=== PATIENT | female | born 2000 | race Caucasian/White ===

== ENCOUNTER 2019-08-21 05:13 | Inpatient (IN) ==
[2019-08-21 05:53] LABS: URINE SOURCE VOIDED
[2019-08-21 05:55] LABS: BILIRUBIN URINE NEGATIVE (NEGATIVE); BLOOD URINE NEGATIVE (NEGATIVE); COLOR YELLOW; GLUCOSE URINE NEGATIVE (NEGATIVE); KETONE URINE NEGATIVE (NEGATIVE); LEUKOCYTES URINE SMALL (NEGATIVE); NITRITE URINE NEGATIVE (NEGATIVE); PROTEIN URINE NEGATIVE (NEGATIVE); SP GRAVITY URINE 1.012; TURBIDITY URINE CLEAR (CLEAR); UROBILINOGEN URINE NORMAL (NORMAL)
[2019-08-21 07:19] LABS: UR AMPHETAMINES QUAL NONE DETECTED (NONE DETECT); UR BARBITUATES QUAL NONE DETECTED (NONE DETECT); UR BENZODIAZEPIN QUAL NONE DETECTED (NONE DETECT); UR CANNABINOIDS QUAL NONE DETECTED (NONE DETECT); UR COCAINE QUAL NONE DETECTED (NONE DETECT); UR METHADONE QUAL NONE DETECTED (NONE DETECT); UR OPIATES QUAL NONE DETECTED (NONE DETECT); UR OXYCODONE QUAL NONE DETECTED (NONE DETECT); UR PCP QUAL NONE DETECTED (NONE DETECT)
[2019-08-21] MEDS ORDERED: LR 1,000 ML ONE (07:30)
[2019-08-21] MEDS ORDERED: ZOFRAN IV PRN (08:07)
[2019-08-21] MEDS ORDERED: PEPCID PO PRN ×2 (08:07)
[2019-08-21] MEDS ORDERED: REGLAN PO PRN (08:07)
[2019-08-21] MEDS ORDERED: PEPCID IV PRN (08:07)
[2019-08-21] MEDS ORDERED: TYLENOL PO PRN (08:07)
[2019-08-21] MEDS ORDERED: LR 500 ML IV ONE (08:07)
[2019-08-21] MEDS ORDERED: KEFZOL 2 GM/D5W 2 GM/50 ML IVPB IV PRN (08:07)
[2019-08-21] MEDS ORDERED: AMPICILLIN 2 GM in NS 100 ML IV ONE (08:07)
[2019-08-21] MEDS ORDERED: PITOCIN 30 UNITS/NS 30 UNIT/500 ML IV.SOLN IV SCH ×2 (08:15→16:00)
[2019-08-21] MEDS ORDERED: LR 1,000 ML IV SCH (08:15)
[2019-08-21] MEDS ORDERED: SODIUM CHLORIDE 0.9% INJ SCH (08:15)
[2019-08-21 08:26] LABS: BASO# 0.02 X1000 (0.0-0.2); BASO% 0.1 % (0.0-0.8); EOS# 0.08 X1000 (0.0-0.7); EOS% 0.5 % (0.0-10.0); HEMATOCRIT 36.8 % (37.0-47.0); HEMOGLOBIN 12.5 g/dL (12.0-16.0); IMM GRAN# 0.11 X1000 (0.0-0.04); IMM GRAN% 0.7 % (0.0-0.5); LYMPH# 1.75 X1000 (1.2-3.4); LYMPH% 11.8 % (20.5-51.1); MCH 29.8 PG (27-31); MCV 87.8 FL (81-99); MONO# 1.08 X1000 (0.11-0.59); MONO% 7.3 % (1.7-9.3); MPV 11.2 FL (7.4-10.4); NEUT# 11.82 X1000 (1.4-6.5); NEUT% 79.6 % (42.2-75.2); PLT 192 X1000 (130-400); RBC 4.19 XMIL (4.2-5.4); RDW 12.7 % (11.5-14.5); WBC 14.86 X1000 (4.8-10.8)
[2019-08-21] MEDS: STADOL IV PRN ×2 (08:27→12:25)
[2019-08-21] MEDS: LR 1,000 ML IV SCH ×2 (08:37→13:11)
[2019-08-21] MEDS ORDERED: NAROPIN 0.2% INJ ONE (08:45)
[2019-08-21] MEDS ORDERED: FENTANYL-BUPIV-NS 500 MCG-0.125% 250 ML EPIDURAL SCH (09:00)
[2019-08-21] MEDS ORDERED: FENTANYL IV ONE (09:51)
[2019-08-21] MEDS ORDERED: NEO-SYNEPHRINE IV ONE (09:53)
[2019-08-21] MEDS ORDERED: SODIUM CHLORIDE 0.9% INJ PRN (09:54)
[2019-08-21] MEDS ORDERED: XYLOCAINE-MPF 2% ONE (10:45)
[2019-08-21] MEDS: AMPICILLIN 1 GM in NS 50 ML IV SCH ×2 (12:05→17:49)
--- NOTE | 2019-08-21 12:11 | HISTORY AND PHYSICAL ---
HISTORY OF PRESENT ILLNESS: Ms. Jones is a 19-year-old, G 1, P 0, at 36 weeks and 2 days who presents to labor and delivery in early active labor. The patient reports regular contractions, increased pelvic pain and pressure. Reports good movement. Denies leakage of fluid or vaginal bleeding. The patient has had routine care with current . The patient's 1 hour oral glucose tolerance test was elevated; however, 3 hour diagnostic test was found to be normal. labs showed blood type O positive, antibody screen negative, hepatitis B nonreactive, hepatitis C nonreactive, HIV nonreactive, chlamydia negative, gonorrhea negative, rubella immune, RPR nonreactive. ALLERGIES: No known drug allergies. CURRENT MEDICATIONS: vitamins. PAST MEDICAL HISTORY: None. PAST SURGICAL HISTORY: None. OBSTETRICAL HISTORY: G 1, P 0. DUST SAMPLER HISTORY: Menarche at age 12. Denies STD exposure. FAMILY HISTORY: Noncontributory. SOCIAL HISTORY: Denies tobacco, alcohol, or drug use. PHYSICAL EXAMINATION: VITAL SIGNS: Temperature 97.8 degrees Fahrenheit, pulse rate 84, respiratory rate 18, blood pressure 117/74, O2 saturation is 99% on room air. Weight 193 pounds. Height 5 feet 2 inches tall. Body mass index 35 kg/m2. GENERAL: No acute distress. Alert, awake, oriented x3. CARDIOVASCULAR: Regular rate and rhythm. Positive S1, S2. RESPIRATORY: Clear to auscultation bilaterally. Negative rhonchi, rales, or wheezing. ABDOMEN: Gravid, soft, nontender to palpation. EXTREMITIES: Lower extremities +1 edema. Negative calf tenderness. PELVIC: Sterile vaginal exam, 3 cm dilated, 90% effaced, -2 station. Electronic monitoring, category 1 tracing. Tocometry, contractions occurring every 3 to 4 minutes. LABORATORY: WBCs 14.86, hemoglobin 12.5, hematocrit 36.8, platelets 192,000. Urine drug screen negative. GBS pending. ASSESSMENT: Ms. Jones is a 19-year-old, 1, para 0, at 36 weeks and 2 days, who presents in early active labor. PLAN: 1. Admit to labor and delivery for delivery. 2. Obtain routine labor labs. 3. GBS status unknown. We will treat with ampicillin IV. 4. Augmentation with Pitocin and artificial rupture of membranes as needed for active management. 5. Patient counseled on risks, benefits, and alternatives to vaginal delivery. Risks not limited to infection, bleeding, vaginal laceration, need for vacuum delivery, or emergency delivery. The patient understands risks and agrees to procedure. 6. Continuous electronic monitoring.
[2019-08-21] MEDS ORDERED: MINERAL OIL TOP ONE (13:21)
[2019-08-21] MEDS ORDERED: XYLOCAINE-MPF 1% INJ ONE (13:22)
[2019-08-21] MEDS ORDERED: PITOCIN 20 UNITS/NS 20 UNITS/1,000 ML IV.SOLN ONE (14:27)
[2019-08-21] MEDS ORDERED: HYDROXYZINE IM PRN (15:49)
[2019-08-21] MEDS ORDERED: PERI MEDS (DERMOPLAST/NUPERCAINAL/TUCKS) MISC PRN (15:49)
[2019-08-21] MEDS ORDERED: NORCO-5 PO PRN (15:49)
[2019-08-21] MEDS ORDERED: ATARAX PO PRN (15:49)
[2019-08-21] MEDS ORDERED: CYTOTEC PO PRN (15:49)
[2019-08-21] MEDS ORDERED: BOOSTRIX VACCINE IM ONE (15:49)
[2019-08-21] MEDS ORDERED: BENADRYL IV PRN (15:49)
[2019-08-21] MEDS ORDERED: PITOCIN IM PRN (15:49)
[2019-08-21] MEDS ORDERED: BENADRYL PO PRN (15:49)
[2019-08-21] MEDS ORDERED: M-M-R II VACCINE SUBQ ONE (15:49)
[2019-08-21] MEDS ORDERED: AMBIEN PO PRN (15:49)
[2019-08-21] MEDS ORDERED: MINERAL OIL TOP PRN (15:49)
[2019-08-21] MEDS ORDERED: XYLOCAINE-MPF 1% INJ PRN (15:49)
[2019-08-21] MEDS ORDERED: PITOCIN 20 UNITS/NS 20 UNITS/1,000 ML IV.SOLN IV SCH (16:00)
[2019-08-21] MEDS: MOTRIN PO PRN (17:48)
[2019-08-21] MEDS: PERICOLACE PO SCH (20:49)
--- NOTE | 2019-08-22 01:49 | OPERATIVE NOTE ---
PROCEDURE DATE: 08/21/2019 SURGEON: Natalia Muhammad DO. LIDAR ANALYST: None. PROCEDURE PERFORMED: Spontaneous vaginal delivery. DESCRIPTION OF PROCEDURE: The patient delivered a viable female at 36 weeks and 2 days, weighing 6 pounds 1 ounce with 's of 8 and 9 at one and five minutes respectively. The vertex delivered spontaneously over intact perineum. No nuchal cord was identified. The anterior shoulder was delivered atraumatically by maternal expulsive efforts with the assistance of downward traction. The posterior shoulder delivered with maternal expulsive efforts and upward traction. The remainder of the fetus delivered spontaneously. Upon delivery, the was placed on the patient's abdomen and assessed by waiting asset management lead staff. The cord was then clamped and cut, and cord blood was obtained for blood gas analysis. To enhance uterine contractions, IV oxytocin was administered. The cervix, vagina and perineum were inspected for lacerations. Bilateral sidewall lacerations were noted near the labia and was repaired using 3-0 Vicryl on an SH needle. Prior to repair, 1% lidocaine was injected at the site for pain management. Bilateral first-degree lacerations were repaired in a running nonlocked fashion and good hemostasis was confirmed. ESTIMATED BLOOD LOSS: 250 mL. COUNTS: Correct x2 at the end of procedure.
[2019-08-22 05:05] LABS: HEMATOCRIT 31.1 % (37.0-47.0); HEMOGLOBIN 10.3 g/dL (12.0-16.0); MCH 30.1 PG (27-31); MCHC 33.1 g/dL (33-37); MCV 90.9 FL (81-99); MPV 10.8 FL (7.4-10.4); RBC 3.42 XMIL (4.2-5.4); RDW 12.9 % (11.5-14.5); WBC 14.46 X1000 (4.8-10.8)
--- NOTE | 2019-08-22 07:43 | OB/GYN PROGRESS NOTE ---
- Subjective 19 yo PPD#1 s/p at 36w 2/2 PTL, GBS unk Patient seen and examined. Pain is controlled. She notes normal lochia. She is ambulating and voiding without difficulty. She has not had a bowel movement yet. She is tolerating a regular diet, denies nausea/vomiting. She is breast/bottle feeding. She is undecided on PP contraception. OB Physical Exam Vital Signs - 8 hr 08/22/19 00:00 08/22/19 04:00 Temperature 97.9 F 96.7 F L Pulse Rate 73 67 Respiratory Rate 18 18 Blood Pressure 105/57 105/57 O2 Sat by Pulse Oximetry 99 100 - CONSTITUTIONAL General Appearance: appears well, alert, no apparent distress - EYES Eyes: PERRL/EOMI - HEAD, EARS, NOSE, MOUTH & THROAT HENMT: normocephalic/atraumatic - RESPIRATORY Respiratory: lungs clear, normal breath sounds, no respiratory distress - CARDIOVASCULAR Cardiovascular: regular rate, rhythm - GASTROINTESTINAL (ABDOMEN) Abdominal Exam: normal bowel sounds, non tender, soft, other (fundus firm, below umbilicus) - MUSCULOSKELETAL Extremity: normal range of motion, non-tender, no calf tenderness - SKIN Integumentary: normal color - NEUROLOGIC Neurologic: grossly normal - PSYCHIATRIC Psych/Mental Status: normal mood/affect Active Medications Generic Name Dose Route Start Last Admin Trade Name Freq PRN Reason Stop Dose Admin Acetaminophen 650 mg 08/21/19 08:07 Tylenol PO Q4-6H PRN PRN Headache Hydrocodone Bitart/Acetaminophen 1 each 08/21/19 15:49 08/21/19 17:48 Wise-5 PO 1 each Q3-4H PRN PRN Administration Pain (1-6 on Pain Scale) Benzocaine 1 each 08/21/19 15:49 08/21/19 20:50 Diana Meds (Dermoplast/Nupercainal/Tucks) MISC 1 applic 3-4XDAY PRN PRN Administration episiotomy/hemorrhoids Butorphanol Tartrate 2 mg 08/21/19 08:07 08/21/19 12:25 Stadol IV 2 mg PRN PRN Administration Pain Diphenhydramine HCl 12.5 mg 08/21/19 15:49 Benadryl IV Q4H PRN PRN Itching Diphenhydramine HCl 25 mg 08/21/19 15:49 Benadryl PO Q4H PRN PRN Itching Famotidine 40 mg 08/21/19 08:07 Pepcid PO Q12H PRN PRN GI upset or indigestion Famotidine 20 mg 08/21/19 08:07 Pepcid IV Q12H PRN PRN GI upset or indigestion Famotidine 20 mg 08/21/19 08:07 Pepcid PO ONCE PRN PRN section Hydroxyzine HCl 50 mg 08/21/19 15:49 Atarax PO Q3-4H PRN PRN Nausea Hydroxyzine HCl 50 mg 08/21/19 15:49 Hydroxyzine IM Q3-4H PRN PRN Nausea Lactated Ringer's 1,000 mls @ 0 mls/hr 08/21/19 07:30 08/21/19 13:11 Lr IV 125 mls/hr .Q0M ROSCOE Administration As Directed Lactated Ringer's 1,000 mls @ 125 mls/hr 08/21/19 08:15 Lr IV .Q8H ROSCOE Oxytocin/Sodium Chloride 30 unit in 500 mls @ 0 mls/hr 08/21/19 08:15 Pitocin 30 Units/Ns IV .Q0M ROSCOE As Directed Cefazolin Sodium/Dextrose 2 gm in 50 mls @ 50 mls/hr 08/21/19 08:07 Kefzol 2 Gm/D5w IV ONCE PRN PRN section Fentanyl/Bupivacaine/Sodium Chlor 250 mls @ 0 mls/hr 08/21/19 09:00 08/21/19 10:28 Ebdinlxp-Hmshn-Zm 500 Mcg-0.125% EPIDURAL 12 mls/hr DIRECTED ROSCOE Administration As Directed Oxytocin/Sodium Chloride 20 units in 1,000 mls @ 0 mls/hr 08/21/19 16:00 Pitocin 20 Units/Ns IV .Q0M ROSCOE As Directed Ibuprofen 800 mg 08/21/19 15:49 08/21/19 17:48 Motrin PO 800 mg Q8H PRN PRN Administration cramping Lidocaine HCl 30 ml 08/21/19 15:49 Xylocaine-Mpf 1% INJ PRN PRN Perineal repair Metoclopramide HCl 10 mg 08/21/19 08:07 Reglan PO ONCE PRN PRN section Mineral Oil 30 ml 08/21/19 15:49 Mineral Oil TOP PRN PRN Perineal massage Misoprostol 800 microgm 08/21/19 15:49 Cytotec PO PRN PRN Severe bleeding Ondansetron HCl 4 mg 08/21/19 08:07 08/21/19 08:27 Zofran IV 4 mg PRN PRN Administration Nausea Oxytocin 20 unit 08/21/19 15:49 Pitocin IM PRN PRN Severe bleeding Senna/Docusate Sodium 1 each 08/21/19 21:00 08/21/19 20:49 Pericolace PO 1 each QHS ROSCOE Administration Sodium Chloride 5 - 10 ml 08/21/19 08:15 Sodium Chloride 0.9% INJ DIRECTED ROSCOE Sodium Chloride 10 ml 08/21/19 09:54 Sodium Chloride 0.9% INJ PRN PRN Used to mix Phenylephrine Zolpidem Tartrate 10 mg 08/21/19 15:49 Ambien PO HS PRN PRN Sleep Laboratory Results - last 24 hr 08/21/19 08/21/19 08/22/19 05:30 05:30 04:40 WBC 14.86 H 14.46 H RBC 4.19 L 3.42 L Hgb 12.5 10.3 L D Hct 36.8 L 31.1 L MCV 87.8 90.9 MCH 29.8 30.1 MCHC 34.0 33.1 RDW Std Deviation 12.7 12.9 Plt Count 192 159 MPV 11.2 H 10.8 H Immature Gran % (Auto) 0.7 H Neut % (Auto) 79.6 H Lymph % (Auto) 11.8 L [place] % (Auto) 7.3 Eos % (Auto) 0.5 Baso % (Auto) 0.1 Immature Gran # (Auto) 0.11 H Neut # (Auto) 11.82 H Lymph # (Auto) 1.75 [place] # (Auto) 1.08 H Eos # (Auto) 0.08 Baso # (Auto) 0.02 RPR NON-REACTIVE OB Assessment & Plan (1) Status post vaginal delivery Status: Acute Plan: 19 yo PPD#1 s/p at 36 weeks 2/2 PTL, GBS unk 1. HD stable, afebrile 2. Breast/Bottle feeding 3. Routine PP care 4. Encourage ambulation 5. Stool softener PRN
[2019-08-22] MEDS: PERICOLACE PO SCH (21:06)
[2019-08-22] MEDS: MOTRIN PO PRN (21:06)
[2019-08-23] MEDS: MOTRIN PO PRN (07:35)
[2019-08-23 07:40] VITALS: BP 117/64
== END 2019-08-23 13:30 | disposition home or self-care (01) | DRG 807 ==
LOC: OPLD 05:13 → LD 05:14
PROVIDERS: ADMIT Obstetrics & Gynecology; ATTEND Obstetrics & Gynecology